=== PATIENT | female | born 1955 | race Caucasian/White ===

== ENCOUNTER → 2016-09-03 | Outpatient (CLI) | payer OTHER ==
--- NOTE | 2016-09-03 15:59 | RAD ---
Left wrist, 3 views, 09/03/2016: History: Pain and swelling There is severe patchy bony demineralization. There are multiple foci of cortical destruction including the margins of the distal radius and ulna as well as the proximal aspects of the proximal phalanges of several fingers. There are focal cortical defects in several carpal bones as well. Arterial calcifications are present. IMPRESSION: Severe patchy bony demineralization with multiple foci of cortical loss as described above. 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 Is the patient diabetic? Other less likely possibilities would include hyperparathyroidism or an erosive form of arthritis with juxta-articular erosions.
[2016-09-03 16:19] LABS: CREATININE 5.2 mg/dL (0.6-1.0); GFR 8.4
--- NOTE | 2016-09-03 17:18 | RAD ---
Indication pain. Redness. AP oblique and lateral views of the left hand were obtained. Note is made of the examination of the wrist earlier in the day. Focal areas of demineralization are seen involving the wrist and diagnostic considerations remain as outlined on her the interpretation of the wrist. There is generalized demineralization. There is some cortical loss involving the base of the proximal phalanx of the ring and index fingers on the ulnar side. There is some generalized soft tissue swelling of the hand. IMPRESSION: Focal areas of demineralization suggest a systemic process such as erosive arthritis. Multifocal infection in the hand and wrist cannot be excluded. A dual process, infection and arthritis, also is not excluded. MRI may be useful for additional evaluation
== END | disposition home or self-care (01) ==
LOC: LAB 15:08
PROVIDERS: ATTEND Psychiatry & Neurology Neurology
DX: M79.642 Pain in left hand (principal); M25.532 Pain in left wrist; L53.9 Erythematous condition, unspecified; M79.89 Other specified soft tissue disorders
CPT/HCPCS: 36415; 73110; 73130; 82550; 82565; 82607; 82947; 84443; 84520